=== PATIENT | female | born 1950 | race Caucasian/White ===

== ENCOUNTER 2024-05-23 22:53 | Inpatient (IN) ==
[2024-05-23] MEDS ORDERED: IOPAMIDOL 100 ML BOTTLE IV ONE (22:54)
[2024-05-23 23:54] LABS: Basophils # (Auto) 0 K/mcL (0.00-0.30); Basophils % (Auto) 0 % (0.0-2.0); Eosinophils # (Auto) 0.05 K/mcL (0.00-0.70); Eosinophils % (Auto) 0.9 % (0.0-7.0); Hematocrit 45.7 % (34.1-44.9); Hemoglobin 13.4 g/dL (11.2-15.7); Lymphocytes # (Auto) 0.89 K/mcL (1.50-4.80); Lymphocytes % (Auto) 15.6 % (15.5-49.0); Mean Cell Volume 101.3 fL (80.0-100.0); Mean Corpuscular HGB Conc 29.3 g/dL (31.0-36.0); Mean Platelet Volume 10.1 fL (8.8-12.5); Monocytes # (Auto) 0.39 K/mcL (0.10-0.90); Monocytes % (Auto) 6.8 % (1.0-12.0); Neutrophils % (Auto) 76.5 % (38.0-78.0); Platelet Count 159 K/mcL (140-440); RBC 4.51 M/mcL (3.59-5.38); Red Cell Distribution Width 16.2 % (11.5-14.5); WBC 5.7 K/mcL (4.5-11.0)
[2024-05-24] MEDS: HYDROcodone/APAP 5/325MG TABLET PO ONE (00:10)
[2024-05-24 00:18] LABS: Thyroid Stimulating Hormone 3.79 uIU/mL (0.27-5.01)
[2024-05-24 00:25] LABS: Appearance,Urine Clear (Clear); Bacteria,Urine 0 /hpf (0); Bilirubin,Urine Negative (Negative); Color,Urine Yellow; Glucose,Urine (UA) Negative (Negative); Ketones,Urine 80 mg/dL (Negative); Leukocyte Esterase,Urine Negative /uL (Negative); Nitrate,Urine Negative (Negative); Protein,Urine Negative (Negative); Specific Gravity,Urine 1.015 (1.000-1.035); Urine Blood Small ery/mcL (Negative); Urine RBC 0 /hpf (0-3); Urine Squamous Epithelial Cell 0 /hpf (0-4); Urine WBC 1 /hpf (0-4); Urobilinogen,Urine Normal
[2024-05-24 00:26] LABS: ALT/SGPT 17 U/L (<40); AST/SGOT 85 U/L (<32); Albumin/Globulin Ratio 1.7 (1.0-2.3); Alkaline Phosphatase 69 U/L (39-117); Bilirubin,Total 0.5 mg/dL (0.1-1.0); Blood Urea Nitrogen 8 mg/dL (8-23); Calcium 8.9 mg/dL (8.6-10.4); Carbon Dioxide 5 mmol/L (22-30); Chloride 100 mmol/L (96-108); Globulin 2.4 gm/dL (2.2-3.7); Glomerular Filtration Rate 56; Glucose 67 mg/dL (70-105); Potassium 3.4 mmol/L (3.3-5.1); Sodium 134 mmol/L (133-145)
[2024-05-24 01:03] LABS: Free T4 (Free Thyroxine) 0.82 ng/dL (0.93-1.70)
[2024-05-24 01:27] LABS: ABG Methemoglobin 0.1 % (0.4-1.5); Total Hemoglobin 13.1 gm/Dl (12.0-15.0); VBG Base Excess -21 (-2-3); VBG HCO3 5.9 mmol/L (24.0-28.0); VBG PCO2 17.7 mmHg (41.0-51.0); VBG PH 7.14 U (7.32-7.42); VBG Total CO2 6.4 mmol/L (25.0-29.0)
[2024-05-24] MEDS: ONDANSETRON 4 MG/2 ML VIAL IV ONE (01:43)
[2024-05-24] MEDS: POTASSIUM CHLORIDE 20 MEQ TABLET PO ONE (01:44)
[2024-05-24] MEDS ORDERED: DEXTROSE 5%-1/2NS 1,000 ML IV SCH (01:45)
[2024-05-24] MEDS: DEXTROSE 5%-NS 1,000 ML IV SCH (01:51)
[2024-05-24 02:53] LABS: Beta Hydroxybutyrate 9.43 mmol/L (<0.27)
[2024-05-24] MEDS ORDERED: HYDROcodone/APAP 5/325MG TABLET PO PRN (05:19)
[2024-05-24 07:15] LABS: Basophils # (Auto) 0.01 K/mcL (0.00-0.30); Basophils % (Auto) 0.2 % (0.0-2.0); Eosinophils # (Auto) 0.18 K/mcL (0.00-0.70); Eosinophils % (Auto) 3.2 % (0.0-7.0); Hematocrit 39.5 % (34.1-44.9); Hemoglobin 12.5 g/dL (11.2-15.7); Lymphocytes # (Auto) 0.92 K/mcL (1.50-4.80); Lymphocytes % (Auto) 16.3 % (15.5-49.0); Mean Cell Volume 93.2 fL (80.0-100.0); Mean Corpuscular HGB Conc 31.6 g/dL (31.0-36.0); Monocytes # (Auto) 0.38 K/mcL (0.10-0.90); Monocytes % (Auto) 6.7 % (1.0-12.0); Neutrophils % (Auto) 73.2 % (38.0-78.0); Platelet Count 190 K/mcL (140-440); RBC 4.24 M/mcL (3.59-5.38); WBC 5.7 K/mcL (4.5-11.0)
[2024-05-24 07:34] LABS: ABG Methemoglobin 0.1 % (0.4-1.5); Total Hemoglobin 13.5 gm/Dl (12.0-15.0); VBG Base Excess -17 (-2-3); VBG HCO3 10.8 mmol/L (24.0-28.0); VBG Oxygen Saturation 81.4 % (40.0-70.0); VBG PCO2 31.5 mmHg (41.0-51.0); VBG PH 7.15 U (7.32-7.42); VBG PO2 52.4 mmHg (25.0-40.0); VBG Total CO2 11.7 mmol/L (25.0-29.0)
[2024-05-24 07:40] LABS: Blood Urea Nitrogen 10 mg/dL (8-23); Calcium 8.8 mg/dL (8.6-10.4); Carbon Dioxide 12 mmol/L (22-30); Chloride 103 mmol/L (96-108); Glomerular Filtration Rate 56; Glucose 86 mg/dL (70-105); Potassium 3.4 mmol/L (3.3-5.1); Sodium 136 mmol/L (133-145)
[2024-05-24] MEDS: ACETAMINOPHEN 325 MG TABLET PO PRN (08:16)
[2024-05-24] MEDS: ONDANSETRON 4 MG/2 ML VIAL IV PRN (08:18)
[2024-05-24] MEDS ORDERED: POTASSIUM CHLORIDE 40 MEQ in DEXTROSE 5% IN WATER 500 ML IV PRN (08:26)
[2024-05-24] MEDS ORDERED: MAGNESIUM SULFATE 2 GM/50 ML BAG IV PRN (08:26)
[2024-05-24] MEDS ORDERED: IPRATROPIUM/ALBUTEROL 3 ML AMPUL.NEB NEB PRN (08:26)
[2024-05-24] MEDS ORDERED: POTASSIUM CHLORIDE 20 MEQ TABLET PO PRN (08:26)
[2024-05-24 08:56] LABS: Phosphorous 2.2 mg/dL (2.5-4.5)
[2024-05-24] MEDS: SERTRALINE 100 MG TABLET PO SCH (09:05)
[2024-05-24] MEDS: DOCUSATE SODIUM 100 MG CAPSULE PO SCH (09:05)
[2024-05-24] MEDS: CYANOCOBALAMIN (VITAMIN B-12) 500 MCG TABLET PO SCH (09:05)
[2024-05-24] MEDS: ENOXAPARIN 40 MG/0.4 ML SYRINGE SQ SCH (09:06)
[2024-05-24] MEDS: METOCLOPRAMIDE 10 MG/2 ML VIAL IV PRN (09:11)
[2024-05-24] MEDS: SODIUM BICARBONATE VIAL 150 MEQ in DEXTROSE 5% IN WATER 850 ML IV ONE (09:20)
[2024-05-24] MEDS: PHOSPHORUS 250 MG TABLET PO SCH (10:08)
[2024-05-24] MEDS: NEUTRA PHOS 1 PACKET PO SCH (10:08)
[2024-05-24] MEDS: morphine 2 MG/ML VIAL IV PRN (12:56)
[2024-05-24] MEDS: oxyCODONE/APAP 10/325MG TABLET PO PRN (17:37)
[2024-05-24] MEDS: traZODone HCL 150 MG TABLET PO SCH (20:12)
[2024-05-24] MEDS: FOLIC ACID 1 MG TABLET PO SCH (20:13)
[2024-05-25] MEDS ORDERED: METOPROLOL TARTRATE 5 MG/5 ML VIAL IV PRN (04:37)
[2024-05-25] MEDS: ADENOSINE 3 MG/ML VIAL IV ONE ×2 (06:14→06:15)
[2024-05-25] MEDS: COSYNTROPIN 0.25 MG VIAL IV SCH (06:17)
[2024-05-25 06:41] LABS: Creatine Kinase 344 U/L (24-170)
[2024-05-25 07:02] LABS: Basophils # (Auto) 0 K/mcL (0.00-0.30); Basophils % (Auto) 0 % (0.0-2.0); Eosinophils # (Auto) 0.17 K/mcL (0.00-0.70); Eosinophils % (Auto) 4.3 % (0.0-7.0); Hematocrit 32.4 % (34.1-44.9); Hemoglobin 10.6 g/dL (11.2-15.7); Lymphocytes % (Auto) 17.7 % (15.5-49.0); Mean Corpuscular HGB Conc 32.7 g/dL (31.0-36.0); Mean Platelet Volume 10.2 fL (8.8-12.5); Monocytes # (Auto) 0.27 K/mcL (0.10-0.90); Monocytes % (Auto) 6.8 % (1.0-12.0); Neutrophils % (Auto) 70.9 % (38.0-78.0); Platelet Count 136 K/mcL (140-440); RBC 3.56 M/mcL (3.59-5.38); Red Cell Distribution Width 15.8 % (11.5-14.5)
[2024-05-25 07:05] LABS: ALT/SGPT 22 U/L (<40); AST/SGOT 64 U/L (<32); Albumin 3.3 gm/dL (3.2-5.2); Albumin/Globulin Ratio 1.6 (1.0-2.3); Alkaline Phosphatase 63 U/L (39-117); Bilirubin,Direct 0.3 mg/dL (<0.3); Bilirubin,Total 0.5 mg/dL (0.1-1.0); Blood Urea Nitrogen 9 mg/dL (8-23); Calcium 8.8 mg/dL (8.6-10.4); Carbon Dioxide 22 mmol/L (22-30); Chloride 104 mmol/L (96-108); Globulin 2.1 gm/dL (2.2-3.7); Glomerular Filtration Rate 74; Glucose 96 mg/dL (70-105); Lactate Dehydrogenase 204 U/L (135-225); Phosphorous 2.1 mg/dL (2.5-4.5); Potassium 2.8 mmol/L (3.3-5.1); Sodium 139 mmol/L (133-145); Triglycerides 112 mg/dL (<150); Uric Acid 5.3 mg/dL (2.5-8.0)
[2024-05-25] MEDS: POTASSIUM CHLORIDE 20 MEQ TABLET PO PRN (07:56)
[2024-05-25] MEDS: NEUTRA PHOS 1 PACKET PO ONE (07:56)
[2024-05-25] MEDS: PHOSPHORUS 250 MG TABLET PO SCH (08:57)
[2024-05-25] MEDS: SERTRALINE 100 MG TABLET PO SCH (08:59)
[2024-05-25] MEDS: oxyCODONE/APAP 10/325MG TABLET PO PRN (10:23)
[2024-05-25] MEDS: LEVOTHYROXINE 25 MCG TABLET PO SCH (10:24)
[2024-05-25] MEDS ORDERED: LIDOCAINE 1% 10 ML VIAL SQ ONE (11:19)
[2024-05-25] MEDS ORDERED: SODIUM CHLORIDE IRRIG SOLUTION 250 ML BOTTLE IRR ONE (11:19)
[2024-05-25] MEDS ORDERED: GADOBENATE DIMEGLUMINE 15 ML/VIAL IV ONE (11:21)
[2024-05-25] MEDS: POTASSIUM CHLORIDE 10 MEQ/100 ML BAG IV SCH (12:34)
[2024-05-25] MEDS: ONDANSETRON 4 MG/2 ML VIAL IV PRN (13:25)
[2024-05-25] MEDS: CYCLOBENZAPRINE 10 MG TABLET PO PRN (13:25)
[2024-05-25] MEDS: SENNOSIDES 1 TABLET PO PRN (20:22)
[2024-05-25] MEDS: 0.9 % SODIUM CHLORIDE 10 ML SYRINGE IV SCH (20:24)
[2024-05-26] MEDS: oxyCODONE/APAP 10/325MG TABLET PO PRN (01:17)
[2024-05-26] MEDS: 0.9 % SODIUM CHLORIDE 10 ML SYRINGE IV PRN (05:49)
[2024-05-26 06:48] LABS: Basophils # (Auto) 0.01 K/mcL (0.00-0.30); Basophils % (Auto) 0.2 % (0.0-2.0); Eosinophils # (Auto) 0.25 K/mcL (0.00-0.70); Lymphocytes # (Auto) 1.31 K/mcL (1.50-4.80); Lymphocytes % (Auto) 31.4 % (15.5-49.0); Mean Cell Volume 92.8 fL (80.0-100.0); Mean Corpuscular HGB Conc 32.3 g/dL (31.0-36.0); Mean Platelet Volume 10.8 fL (8.8-12.5); Monocytes # (Auto) 0.39 K/mcL (0.10-0.90); Monocytes % (Auto) 9.4 % (1.0-12.0); Neutrophils % (Auto) 52.3 % (38.0-78.0); Platelet Count 139 K/mcL (140-440); RBC 3.34 M/mcL (3.59-5.38); Red Cell Distribution Width 16.2 % (11.5-14.5); WBC 4.2 K/mcL (4.5-11.0)
[2024-05-26 06:59] LABS: ALT/SGPT 23 U/L (<40); AST/SGOT 48 U/L (<32); Albumin 3.4 gm/dL (3.2-5.2); Albumin/Globulin Ratio 1.6 (1.0-2.3); Alkaline Phosphatase 62 U/L (39-117); Bilirubin,Direct < 0.2 mg/dL (0-0.3); Bilirubin,Total 0.4 mg/dL (0.1-1.0); Blood Urea Nitrogen 11 mg/dL (8-23); Calcium 9.4 mg/dL (8.6-10.4); Carbon Dioxide 24 mmol/L (22-30); Chloride 103 mmol/L (96-108); Globulin 2.1 gm/dL (2.2-3.7); Glomerular Filtration Rate 87; Glucose 76 mg/dL (70-105); Lactate Dehydrogenase 245 U/L (135-225); Phosphorous 1.8 mg/dL (2.5-4.5); Potassium 4.2 mmol/L (3.3-5.1); Sodium 137 mmol/L (133-145); Triglycerides 105 mg/dL (<150); Uric Acid 3.8 mg/dL (2.5-8.0)
[2024-05-26] MEDS: NEUTRA PHOS 1 PACKET PO ONE (08:10)
[2024-05-26] MEDS: SODIUM PHOSPHATE 30 MMOL in DEXTROSE 5% IN WATER 500 ML IV ONE (08:10)
[2024-05-26] MEDS: PHOSPHORUS 250 MG TABLET PO SCH (08:11)
[2024-05-26] MEDS: hydrOXYzine 25 MG TABLET PO ONE (10:10)
[2024-05-26] MEDS: diphenhydrAMINE 50 MG/ML VIAL IV PRN (17:31)
[2024-05-26] MEDS: diphenhydrAMINE 50 MG/ML VIAL ONE (18:00)
[2024-05-26] MEDS: MELATONIN 3 MG TABLET PO SCH (20:01)
[2024-05-26] MEDS: diphenhydrAMINE 25 MG CAPSULE PO SCH (20:19)
[2024-05-26] MEDS: POLYETHYLENE GLYCOL 3350 17 GM PACKET PO PRN (20:28)
[2024-05-27] MEDS: hydrOXYzine 25 MG TABLET PO PRN (04:41)
[2024-05-27 06:33] LABS: ALT/SGPT 21 U/L (<40); AST/SGOT 31 U/L (<32); Albumin/Globulin Ratio 1.5 (1.0-2.3); Alkaline Phosphatase 60 U/L (39-117); Bilirubin,Direct < 0.2 mg/dL (0-0.3); Bilirubin,Total 0.3 mg/dL (0.1-1.0); Blood Urea Nitrogen 15 mg/dL (8-23); C-Reactive Protein 2.94 mg/dL (0.03-0.80); Calcium 9.1 mg/dL (8.6-10.4); Carbon Dioxide 28 mmol/L (22-30); Chloride 102 mmol/L (96-108); Glomerular Filtration Rate 91; Glucose 79 mg/dL (70-105); Lactate Dehydrogenase 224 U/L (135-225); Phosphorous 4.5 mg/dL (2.5-4.5); Potassium 3.8 mmol/L (3.3-5.1); Sodium 139 mmol/L (133-145); Triglycerides 122 mg/dL (<150); Uric Acid 3.2 mg/dL (2.5-8.0)
[2024-05-27] MEDS: FLUDROCORTISONE 0.1 MG TABLET PO SCH (10:15)
[2024-05-31 15:55] LABS: Renin Activity,Plasma-SO 2.31 ng/mL/h (0.25-5.82)
== END 2024-05-27 16:08 | disposition short-term general hospital (02) | DRG 381 ==
LOC: ED 22:53 → ICU 05-24 05:42
PROVIDERS: ADMIT Internal Medicine; ATTEND Internal Medicine